=== PATIENT | male | born 1975 | race Hispanic/Latino ===

== ENCOUNTER 2017-01-26 11:29 | Emergency (ER) | payer BC ==
[2017-01-26 11:50] VITALS: BMI 39.5
[2017-01-26] MEDS ORDERED: TDAP Vaccine 0.5 mL Syr IM ONE (11:57)
--- NOTE | 2017-01-26 12:01 | ED PDOC ---
Arrival/HPI - General Chief Complaint: Abnormal Skin Integrity Time Seen by Provider: 01/26/17 11:31 Historian: Patient - History of Present Illness Narrative History of Present Illness (Text): 01/26/17 11:58 41 y/o male, pmh including htn/gerd, nkda, c/o rt. hand laceration by the broken glass x 1 hour. Pt. accidentally cut on the rt. hand and sustained the laceration by the glass while reaching for an object, no numbness or tinging, bleeding resolved, no fever or chills, no difficulty moving the rt. hand or 5 digits, no other medical or psychological complaints. Past Medical History - Provider Review Nursing Documentation Reviewed: Yes - Cardiac Hx Hypertension: Yes Other/Comment: palpitation - Gastrointestinal Hx Gastroesophageal Reflux: Yes - Psychiatric Hx Substance Use: No - Surgical History Other/Comment: left knee surgery Family/Social History - Physician Review Nursing Documentation Reviewed: Yes Family/Social History: Unknown Family HX Smoking Status: Current Some Days Smoker Hx Alcohol Use: Yes Frequency of alcohol use: Socially Hx Substance Use: No Allergies/Home Meds Allergies/Adverse Reactions: Allergies shellfish derived Allergy (Verified 01/26/17 11:51) SWELLING Home Medications: Home Meds Medication Instructions Recorded Confirmed Acebutolol 400 mg PO DAILY 01/26/17 01/26/17 Pantoprazole [Protonix EC Tab] 40 mg PO DAILY 01/26/17 01/26/17 amLODIPine [Norvasc] 2.5 mg PO DAILY 01/26/17 01/26/17 Review of Systems - Review of Systems Constitutional: absent: Fatigue, Fevers Eyes: absent: Vision Changes Respiratory: absent: SOB, Cough Cardiovascular: absent: Chest Pain Gastrointestinal: absent: Abdominal Pain, Diarrhea, Nausea, Vomiting Neurological: absent: Headache, Dizziness, Focal Weakness Physical Exam Vital Signs Temp Pulse Resp BP Pulse Ox 01/26/17 11:47 98.6 F 75 18 132/87 97 Temperature: Afebrile Blood Pressure: Normal Pulse: Regular Respiratory Rate: Normal Appearance: Positive for: Well-Appearing, Non-Toxic, Comfortable Pain Distress: Mild Mental Status: Positive for: Alert and Oriented X 3 - Systems Exam Head: Present: Atraumatic, Normocephalic Pupils: Present: PERRL Extroacular Muscles: Present: EOMI Conjunctiva: Present: Normal Mouth: Present: Moist Mucous Membranes Neck: Present: Normal Range of Motion Respiratory/Chest: Present: Clear to Auscultation, Good Air Exchange. No: Respiratory Distress, Accessory Muscle Use Cardiovascular: Present: Regular Rate and Rhythm, Normal S1, S2. No: Murmurs Abdomen: Present: Normal Bowel Sounds. No: Tenderness, Distention, Peritoneal Signs Back: Present: Normal Inspection Upper Extremity: Present: Normal Inspection, Other (Rt. hand: thenar palmar region visible approx. 3cm intermediate depth laceration with no oozing/ discharge, FROM without limitation, sensation intact, motor 5/5, +radial pulse, capillary refill< 2 seconds, neurovascular intact. ). No: Cyanosis, Edema Lower Extremity: Present: Normal Inspection. No: Edema Neurological: Present: GCS=15, Speech Normal, Motor Func Grossly Intact, Gait Normal, Memory Normal Skin: Present: Warm, Dry, Normal Color. No: Rashes Psychiatric: Present: Alert, Oriented x 3, Normal Insight, Normal Concentration Medical Decision Making ED Course and Treatment: 01/26/17 12:01 -keflex/tetanus/xray 01/26/17 12:16 -normal rt. hand radiograph. -sensation intact, motor 5/5, wound irrigated with 1000cc of normal saline, clean with betadine, 1% lidocaine injected locally with 0.5cc, sterile procedure , 4-0 prolene made 5 sutures with good approximation, hemostasis obtained, bacitracin and gauze dressing applied, sensation intact, motor 5/5, no complication during the procedure. -Discharge home with keflex, bacitracin ointment, keep the dressing dry and clean for 2 days, wash with soap and water twice daily on day 3, sutures can be removed by day 10-11, avoid strenuous exercise or activity, follow up with your own pmd and hand specialist within 2 days, return to the ER for any new or worsening signs or symptoms. - RAD Interpretation Radiology Orders: 01/26/17 11:57 HAND RIGHT 3 VIEWS [RAD] Stat PROCEDURE: Right Hand Radiographs. HISTORY: rt. hand laceration by glass on thenar` COMPARISON: None. FINDINGS: BONES: Normal. No fracture. JOINTS: Normal. No osteoarthritic changes. SOFT TISSUES: Normal. OTHER FINDINGS: None. IMPRESSION: Normal right hand radiographs. Corrections Caseworker: Radiologist - Medication Orders Current Medication Orders: Discontinued Medications Cephalexin Monohydrate (Keflex) 500 mg PO STAT STA PRN Reason: Protocol Stop: 01/26/17 11:58 Last Admin: 01/26/17 12:22 Dose: 500 mg Lidocaine HCl (Lidocaine 1% (20ml)) 0.5 ml IJ STAT STA Stop: 01/26/17 12:07 Last Admin: 01/26/17 12:23 Dose: 0.5 ml Lidocaine HCl (Lidocaine 1% (20ml)) Confirm Administered Dose 20 ml .ROUTE .STK- MED ONE Stop: 01/26/17 12:22 Tetanus/Reduced Diphtheria/Acell Pertussis (Boostrix Vaccine Inj) 0.5 ml IM .ONCE ONE Stop: 01/26/17 11:58 Last Admin: 01/26/17 12:23 Dose: 0.5 ml - PA / [employer]IST / Resident Statement / has reviewed & agrees with the documentation as recorded. Disposition/Present on Arrival - Present on Arrival Any Indicators Present on Arrival: No History of DVT/PE: No History of Uncontrolled Diabetes: No Urinary Catheter: No History of Decub. Ulcer: No History Surgical Site Infection Following: None - Disposition Have Diagnosis and Disposition been Completed?: Yes Diagnosis: Hand laceration Disposition: HOME/ ROUTINE Disposition Time: 12:03 Patient Plan: Discharge Condition: GOOD Additional Instructions: Discharge home with keflex, bacitracin ointment, keep the dressing dry and clean for 2 days, wash with soap and water twice daily on day 3, sutures can be removed by day 10-11, avoid strenuous exercise or activity, follow up with your own pmd and hand specialist within 2 days, return to the ER for any new or worsening signs or symptoms. Prescriptions: Bacitracin Ointment [Bacitracin] 1 appful TOP BID #15 g Cephalexin [Keflex] 500 mg PO TID #24 capsule Referrals: Raina Hernandez MD [Non-Staff] - Follow up with primary [facility] [place]] - Follow up with primary Forms: WORK NOTE
[2017-01-26] MEDS ORDERED: Lidocaine 1% Inj (20ml) IJ STA (12:06)
--- NOTE | 2017-01-26 12:16 | RAD ---
PROCEDURE: Right Hand Radiographs. HISTORY: rt. hand laceration by glass on thenar` COMPARISON: None. FINDINGS: BONES: Normal. No fracture. JOINTS: Normal. No osteoarthritic changes. SOFT TISSUES: Normal. OTHER FINDINGS: None. IMPRESSION: Normal right hand radiographs.
[2017-01-26] MEDS ORDERED: Lidocaine 1% Inj (20ml) ONE (12:21)
[2017-01-26 13:12] VITALS: BP 119/75; PULSE 77; RESP 20; TEMP 98; O2SAT 99
== END 2017-01-26 13:13 | disposition home or self-care (01) ==
LOC: ED 11:29
DX: S61.411A Laceration without foreign body of right hand, initial encounter (principal); W25.XXXA Contact with sharp glass, initial encounter; I10 Essential (primary) hypertension; Z23 Encounter for immunization